=== PATIENT | female | born 1955 | race Caucasian/White ===

== ENCOUNTER 2017-08-23 14:50 | Outpatient (CLI) | payer MEDICAID ==
--- NOTE | 2017-08-23 19:02 | XRAY Report ---
THREE VIEW RIGHT FOOT: 08/23/2017 CLINICAL INDICATION: Foot pain. FINDINGS: AP, lateral, oblique views of the right foot demonstrate moderate hallux valgus, with osteoarthritis, and mild valgus deformity of the second and third metatarsophalangeal joints. There is no evidence of acute fracture. No radiopaque foreign body is seen in the soft tissues. IMPRESSION: OSTEOARTHRITIS, WITH MODERATE HALLUX VALGUS. TD: 08/23/2017 18:52
== END 2017-08-23 14:51 | disposition home or self-care (01) ==
LOC: DI.S 14:50
PROVIDERS: ATTEND Nurse Practitioner Family
DX: M19.071 Primary osteoarthritis, right ankle and foot (principal); M20.11 Hallux valgus (acquired), right foot

== ENCOUNTER 2017-11-05 11:11 | Outpatient (CLI) | payer MEDICAID ==
--- NOTE | 2017-11-05 13:45 | XRAY Report ---
TWO VIEW CHEST: 11/05/2017 CLINICAL INDICATION: Cough. COMPARISON: 10/06/2014. FINDINGS: Frontal and lateral views of the chest demonstrate a normal cardiac silhouette. The lungs remain hyperinflated, compatible with COPD. No new consolidation, effusion, or pneumothorax is present. IMPRESSION: STABLE COPD. NO EVIDENCE OF ACUTE CARDIOPULMONARY DISEASE. TD: 11/05/2017 13:44
== END 2017-11-05 11:12 | disposition home or self-care (01) ==
LOC: DI.S 11:11
PROVIDERS: ATTEND Nurse Practitioner Family
DX: J44.9 Chronic obstructive pulmonary disease, unspecified (principal)
CPT/HCPCS: 71046

== ENCOUNTER 2018-02-25 08:39 | Outpatient (CLI) | payer MEDICAID ==
[2018-02-25 11:55] LABS: BASOPHILS % (AUTO) 0.4 %; EOSINOPHILS # (AUTO) 0.2 10^3/uL (0.0-0.7); EOSINOPHILS % (AUTO) 3.2 %; HGB - HEMOGLOBIN 14.5 g/dL (12.0-16.0); LYMPHOCYTES # (AUTO) 1.5 10^3/uL (1.5-3.5); LYMPHOCYTES % (AUTO) 23.2 %; MEAN CORPUSCULAR HEMOGLOBIN 31.9 pg (27.0-31.0); MEAN CORPUSCULAR HGB CONC 33.6 g/dL (32.0-36.0); MEAN PLATELET VOLUME 8.1 fL (7.9-10.8); MONOCYTES # (AUTO) 0.5 10^3/uL (0.0-1.0); NEUTROPHILS # (AUTO) 4.3 10^3/uL (1.5-6.6); NEUTROPHILS % (AUTO) 65.2 %; PLT - PLATELET COUNT 253 10^3/uL (130-450); RED BLOOD COUNT 4.55 10^6/uL (4.20-5.40); RED CELL DISTRIBUTION WIDTH 13.6 % (12.0-15.0); WHITE BLOOD COUNT 6.5 x10^3/uL (4.8-10.8)
[2018-02-25 13:53] LABS: ALBUMIN/GLOBULIN RATIO 1.5 (1.0-2.2); ALKALINE PHOSPHATASE 67 IU/L (42-121); ALT ALANINE AMINOTRANSFERASE 41 IU/L (10-60); AST ASPARTATE AMINOTRANSFERASE 25 IU/L (10-42); BILIRUBIN,TOTAL 1.1 mg/dL (0.2-1.0); BUN - BLOOD UREA NITROGEN 6 mg/dL (6-20); CALCIUM 8.4 mg/dL (8.5-10.3); CARBON DIOXIDE - CO2 32 mmol/L (21-32); CHLORIDE 95 mmol/L (101-111); CHOL/HDL RATIO 2.8 (<4.4); CHOLESTEROL 207 mg/dL; CREATININE 0.4 mg/dL (0.4-1.0); GFR - MDRD 161 (>89); GLUCOSE 106 mg/dL (70-100); HDL CHOLESTEROL 73 mg/dL; LDL CHOLESTEROL,CALCULATED 114 mg/dL; LDL/HDL RATIO 1.6 (<4.4); SODIUM 134 mmol/L (135-145); TOTAL PROTEIN 6.7 g/dL (6.7-8.2); VLDL CHOLESTEROL 20 mg/dL
== END 2018-02-25 08:40 ==
LOC: LAB.S 08:39
PROVIDERS: ATTEND Nurse Practitioner Family
DX: F41.8 Other specified anxiety disorders (principal); Z13.6 Encounter for screening for cardiovascular disorders; Z13.29 Encounter for screening for other suspected endocrine disorder
CPT/HCPCS: 36415; 80053; 80061; 83721; 84443; 85025

== ENCOUNTER 2018-11-15 14:04 | Outpatient (CLI) | payer MEDICARE, MEDICAID ==
--- NOTE | 2018-11-17 08:03 | XRAY Report ---
Reason: SHORTNESS OF BREATH,PRODUCTIVE COUGH,COPD Procedure Date: 11/15/2018 Accession Number: [id number] / [id number] Procedure: XR - Chest 2 View X-Ray CPT Code: 52731 FULL RESULT: EXAM: CHEST RADIOGRAPHY EXAM DATE: 11/15/2018 02:29 PM. CLINICAL HISTORY: COPD COMPARISON: CHEST 2 VIEW 11/05/2017 11:48 AM. TECHNIQUE: 2 views. FINDINGS: Lungs/Pleura: No focal opacity. Increased lung markings. No effusions. Mediastinum: Stable Other: ACDF IMPRESSION: Suspect underlying airways disease RADIA
== END 2018-11-15 14:05 | disposition home or self-care (01) ==
LOC: DI 14:04
PROVIDERS: ATTEND Nurse Practitioner
DX: J44.9 Chronic obstructive pulmonary disease, unspecified (principal); R05 Cough
CPT/HCPCS: 71046

== ENCOUNTER 2019-08-22 14:22 | Outpatient (CLI) | payer MEDICARE, MEDICAID ==
--- NOTE | 2019-08-23 23:34 | Ultrasound Report ---
Reason: PELVIC PAIN Procedure Date: 08/22/2019 Accession Number: [id number] / [id number] Procedure: US - Pelvic w/Transvaginal CPT Code: Final Report FULL RESULT: EXAM: PELVIC ULTRASOUND EXAM DATE: 08/22/2019 03:17 PM. CLINICAL HISTORY: Pelvic and perineal pain for 3 months. COMPARISON: CT abdomen and pelvis dated 02/04/2012. TECHNIQUE: Realtime transabdominal pelvic scan performed to identify the uterus and adnexa and as an overview of other pelvic structures, followed by transvaginal scan to provide greater detail of the uterus and adnexa, with static image documentation. FINDINGS: Uterus: 4.1 x 2.0 x 3.6 cm, volume 15.6 cc. Retroverted position. Normal overall size and echotexture. Masses: None. Endometrium: 3 mm. Echogenic foci at lower uterine segment measuring 4 x 4 x 5 mm, possibly clustered calcifications. Cervix: Nabothian cyst. Otherwise unremarkable. Right Ovary: 1.4 x 1.1 x 0.9 cm, volume 0.8 cc. Normal echotexture and blood flow. Left Ovary: 1.6 x 0.8 x 1.2 cm, volume 0.8 cc. Normal echotexture and blood flow. Mildly prominent vessel in left adnexa measuring 5 mm. Free Fluid: None. Other: None. IMPRESSION: 1. No sonographic evidence of ovarian torsion or other acute process to account for pain. 2. Echogenic foci at lower uterine segment, possibly calcification(s). 3. Nonspecific mildly prominent vessel in left adnexa. 4. No free fluid. RADIA
== END 2019-08-22 14:23 | disposition home or self-care (01) ==
LOC: DI 14:22
PROVIDERS: ATTEND Internal Medicine
DX: R10.2 Pelvic and perineal pain (principal); R39.9 Unspecified symptoms and signs involving the genitourinary system
CPT/HCPCS: 76830; 76856

== ENCOUNTER 2020-02-02 10:24 | Outpatient (CLI) | payer MEDICARE ==
--- NOTE | 2020-02-03 07:48 | Ultrasound Report ---
LIMITED ULTRASOUND OF LEFT BREAST AND AXILLA: 02/02/2020 CLINICAL: Palpable left breast lump. Comparison is made to exams dated: 02/02/2020 mammogram and 10/15/2014 mammogram - [facility]. Color flow and real-time ultrasound of the left breast 10 o'clock, and axilla regions were performed . Alexander scale images of the real-time examination were reviewed. There is a 1.6 cm x 2.3 cm x 1.3 cm irregular mass with an indistinct margin in the left breast at 10 o'clock middle depth 3 cm from the nipple. This irregular mass is hypoechoic with no posterior acou stic shadowing or enhancement. This correlates as palpated, with mammography findings, and area of c linical concern. Color flow imaging demonstrates that there is vascularity present. There also is an irregular lymph node with eccentric cortical thickening in the left axillary tail. This irregular lymph node is hypoechoic with preservation of the fatty hilum. Color flow imaging dem onstrates that there is vascularity present. IMPRESSION: HIGHLY SUGGESTIVE OF MALIGNANCY The 1.6 cm x 2.3 cm x 1.3 cm irregular mass in the left breast at 10 o'clock middle depth is highly s uggestive of malignancy. An ultrasound guided biopsy is recommended. The irregular lymph node with eccentric cortical thickening in the left axillary tail is suspicious o f malignancy. An ultrasound guided biopsy is recommended. Findings and recommendations for biopsy were discussed with the patient by Dr. Rm during today's vis it. This exam was interpreted at Station ID: [id number]. Electronically Signed By: Gio Elias M.D. aty/:02/02/2020 11:59:57 Ultrasound BI-RADS: 5 Highly suggestive of malignancy BI-RADS CATEGORY: (5) - 5 None [id number] Immediate follow-up LATERALITY: ()
--- NOTE | 2020-02-03 07:48 | Mammography Report ---
BILATERAL DIGITAL DIAGNOSTIC MAMMOGRAM 3D/2D: 02/02/2020 CLINICAL: Palpable left breast lump. Comparison is made to exam dated: 10/15/2014 mammogram - [facility] with [facility]. The tissue of both breasts is extremely dense, which lowers the sensitivity of mammography. There is a new 1.8 cm x 2.4 cm irregular equal density mass in the left breast at 10 o'clock middle d epth. This correlates as palpated and with area of clinical concern as denoted by triangular skin ma rker. There is mild architectural distortion associated with the mass. No other significant masses, calcifications, or other findings are seen in either breast. IMPRESSION: INCOMPLETE: NEEDS ADDITIONAL IMAGING EVALUATION The new 1.8 cm x 2.4 cm irregular equal density mass in the left breast is indeterminate. An ultrasound is recommended for further evaluation and is scheduled to immediately follow this study . This exam was interpreted at Station ID: [id number]. NOTE: For mammograms, a report in lay terms will be sent to the patient. Approximately 15% of breast malignancies will not be visualized mammographically. In the management of a palpable breast mass, a negative mammogram must not discourage biopsy of a clinically suspicious lesion. Electronically Signed By: Gio Elias M.D. aty/:02/02/2020 11:52:36 ACR BI-RADS Category 0: Incomplete 3340F PARENCHYMAL PATTERN: (VD) - The breast(s) demonstrate(s) extremely dense parenchyma, limiting the sen sitivity of mammography. BI-RADS CATEGORY: (0) - 0 Ultrasound [id number] Immediate follow-up LATERALITY: (L)
== END 2020-02-02 10:25 | disposition home or self-care (01) ==
LOC: DI 10:24
PROVIDERS: ATTEND Internal Medicine
DX: N63.22 Unspecified lump in the left breast, upper inner quadrant (principal); R93.89 Abnormal findings on diagnostic imaging of other specified body structures
CPT/HCPCS: 76642; 77066

== ENCOUNTER 2020-02-09 14:32 | Outpatient (CLI) | payer MEDICARE ==
[~2020-02-09 14:32] MED LIST: BUFFERED LIDOCAINE 10 ML SYRINGE ONE
[2020-02-09] MEDS ORDERED: BUFFERED LIDOCAINE 10 ML SYRINGE ONE (15:10)
[2020-02-09] MEDS ORDERED: BUFFERED LIDOCAINE 10 ML SYRINGE IU ONE (16:23)
--- NOTE | 2020-02-10 11:16 | Mammography Report ---
UNILATERAL LEFT DIGITAL DIAGNOSTIC MAMMOGRAM: 02/09/2020 CLINICAL: Post left breast ultrasound biopsy clip placement imaging. Comparison is made to exams dated: 02/02/2020 ultrasound and 02/02/2020 mammogram - [facility]. There is a marker clip in the appropriate position in the left breast at 10 o'clock middle depth. Th is marker clip placement is at the biopsy site. There also is a mass in the left breast seen on the craniocaudal view only. No other significant masses or calcifications are seen in the breast. IMPRESSION: INCOMPLETE: NEEDS ADDITIONAL IMAGING EVALUATION There was a successful marker clip placement in the left breast at 10 o'clock middle depth. The mass in the left breast seen on the craniocaudal view only needs additional evaluation. This exam was interpreted at Station ID: [id number]. NOTE: For mammograms, a report in lay terms will be sent to the patient. Approximately 15% of breast malignancies will not be visualized mammographically. In the management of a palpable breast mass, a negative mammogram must not discourage biopsy of a clinically suspicious lesion. Electronically Signed By: Bev Hoyos M.D. [facility]/:02/10/2020 10:35:59 ACR BI-RADS Category 0: Incomplete 3340F Unknown BI-RADS CATEGORY: (0) - 0 Unspecified - other recall n/a LATERALITY: (B)
--- NOTE | 2020-02-10 16:27 | Ultrasound Report ---
PROCEDURE: Biopsy Breast Core INDICATIONS: LT BREAST MASS TECHNIQUE: The indications, alternatives, benefits, risks, and complications of the procedure were e xplained to the patient. Written informed consent was obtained and placed in the chart. Real-time sonography was utilized to choose the site for the percutaneous breast biopsy. The skin wa s prepped and draped in the usual sterile fashion. 1% lidocaine was infiltrated down to the site of interest. A coaxial needle was then advanced into the site of interest under direct sonographic visu alization. A biopsy apparatus was then utilized, and core biopsies were obtained. The needle was th en withdrawn; a bandage was applied to the biopsy site. COMPARISON: None. FINDINGS: Biopsy site(s): Left breast 10:00 Needle: 10-gauge Achieve biopsy needle set was utilized. Number of passes: 3 Medications: 1% lidocaine for local anaesthesia. Complications: None. IMPRESSION: Successful ultrasound-guided breast biopsy with clip placement, Pathology results are pe nding. Reviewed by: Bev Hoyos MD, PhD on 02/10/2020 4:26 PM PDT Approved by: Bev Hoyos MD, PhD on 02/10/2020 4:26 PM PDT Station ID: [id number]
== END 2020-02-09 14:33 | disposition home or self-care (01) ==
LOC: DI 14:32
PROVIDERS: ATTEND Internal Medicine
DX: C50.212 Malignant neoplasm of upper-inner quadrant of left female breast (principal); Z17.0 Estrogen receptor positive status [ER+]
CPT/HCPCS: 19083

== ENCOUNTER 2020-04-05 10:54 | Outpatient (CLI) | payer MEDICARE ==
--- NOTE | 2020-04-05 17:18 | DEXA Report ---
PROCEDURE: Dexa Spine and/or Hip INDICATIONS: POST MENOPAUSAL TECHNIQUE: Dual energy x-ray absorptiometry (DXA) was performed on a Framebench System. Regions measur ed are the AP Spine, femoral neck, and if needed forearm. COMPARISON: None. FINDINGS: Lumbar Spine: Bone Mineral Density 1.441 g/cm/cm,T score 2.2, normal Left Hip: Bone Mineral Density 0.818 g/cm/cm,T score -1.5, osteopenia Left Femoral Neck: Bone Mineral Density 0.806 g/cm/cm, T score -1.7, osteopenia (T score greater or equal to -1.0: NORMAL) (T score from -1.1 to -2.4: OSTEOPENIA) (T score less than or equal to -2.5 to: OSTEOPOROSIS) Impression: Osteopenia. Patients with diagnosis of osteoporosis or osteopenia should have regular bone mineral density assess ment. For those eligible for Medicare, routine testing is allowed once every 2 years. Testing frequ ency can be increased for patients who have rapidly progressing disease or for those who are receivin g medical therapy to restore bone mass. Reviewed by: Bev Hoyos MD, PhD on 04/05/2020 5:16 PM PDT Approved by: Bev Hoyos MD, PhD on 04/05/2020 5:16 PM PDT Station ID: [id number]
== END 2020-04-05 10:55 | disposition home or self-care (01) ==
LOC: DI 10:54
PROVIDERS: ATTEND Internal Medicine Hematology & Oncology
DX: M85.89 Other specified disorders of bone density and structure, multiple sites (principal)
CPT/HCPCS: 77080

== ENCOUNTER 2020-04-29 12:17 | Outpatient (CLI) | payer MEDICARE ==
--- NOTE | 2020-04-29 13:23 | XRAY Report ---
PROCEDURE: Chest 2 View X-Ray INDICATIONS: PRE OP TECHNIQUE: 2 view(s) of the chest. COMPARISON: 5.3.19 FINDINGS: Surgical changes and devices: Low anterior cervical fusion. Lungs and pleura: No pleural effusions or pneumothorax. Lungs are clear. Mediastinum: Mediastinal contours are normal. Heart size is normal. Bones and chest wall: No suspicious bony abnormalities. Soft tissues appear unremarkable. IMPRESSION: No acute process. Reviewed by: Reuben Randhawa MD on 04/29/2020 1:21 PM PDT Approved by: Reuben Randhawa MD on 04/29/2020 1:21 PM PDT Station ID: [id number]
== END 2020-04-29 12:18 | disposition home or self-care (01) ==
LOC: LAB 12:17 → DI 12:18
PROVIDERS: ATTEND Internal Medicine
DX: Z01.812 Encounter for preprocedural laboratory examination (principal); Z20.828 Contact with and (suspected) exposure to other viral communicable diseases; Z01.818 Encounter for other preprocedural examination; C50.912 Malignant neoplasm of unspecified site of left female breast; I45.2 Bifascicular block
CPT/HCPCS: 71046; 93005; U0004

== ENCOUNTER 2020-05-03 08:29 | Day surgery (SDC) | payer MEDICARE ==
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
--- NOTE | 2020-05-03 08:54 | ANESTHESIA ---
Pre-Anesthesia VS, & Labs - Diagnosis Left Breast Cancer - Procedure Left breast Lumpectomy and [place] Node Vital Signs: Temp Pulse Resp BP Pulse Ox 36.8 C 72 16 148/94 H 94 05/03/20 08:46 05/03/20 08:46 05/03/20 08:46 05/03/20 08:46 05/03/20 08:46 Height: 5 ft 8.5 in Weight (kg): 49 kg Body Mass Index: 16.2 BMI Classification: Underweight - NPO >8 hours - Is Patient ?: No - Lab Results Lab results reviewed: Yes Home Medications and Allergies Home Medications: Ambulatory Orders Albuterol Sulfate [Albuterol Sulfate Hfa] 1 - 2 puffs IH Q4HR PRN 04/29/20 Buprenorphine HCl/Naloxone HCl [Suboxone 8 mg-2 mg Sl Film] 1 each SL BID 04/29/20 Gabapentin 800 mg PO BID 04/29/20 Hydrocortisone/Acetic Acid [Hydrocortison-Acetic Acid Soln] 3 drops OT Q4HR PRN 04/29/20 Trazodone HCl 100 mg PO QPM 04/29/20 Triamcinolone 0.1% Cream [Kenalog 0.1% Cream] 1 applic TOP BID 04/29/20 hydrOXYzine HCL [Hydroxyzine HCl] 25 mg PO PRN PRN 04/29/20 DULoxetine [Cymbalta] 60 mg PO BID 03/15/20 Albuterol Sulfate [Albuterol Sulfate Hfa] 1 - 2 puffs IH Q4HR PRN 04/29/20 Buprenorphine HCl/Naloxone HCl [Suboxone 8 mg-2 mg Sl Film] 1 each SL BID 04/29/20 Gabapentin 800 mg PO BID 04/29/20 Hydrocortisone/Acetic Acid [Hydrocortison-Acetic Acid Soln] 3 drops OT Q4HR PRN 04/29/20 Trazodone HCl 100 mg PO QPM 04/29/20 Triamcinolone 0.1% Cream [Kenalog 0.1% Cream] 1 applic TOP BID 04/29/20 hydrOXYzine HCL [Hydroxyzine HCl] 25 mg PO PRN PRN 04/29/20 Allergies/Adverse Reactions: Allergies Allergy/AdvReac Type Severity Reaction Status Date / Time Penicillins AdvReac Anaphylaxis Verified 04/29/20 11:57 Sulfa (Sulfonamide AdvReac Anaphylaxis Verified 04/29/20 11:57 Antibiotics) Anes History & Medical History - Anesthetic History Anesthesia Complications: reports: No previous complications (Grade 1-just recently detected) Family history of Anesthesia Complications: Denies Family history of Malignant Hyperthermia: Denies - Medical History Cardiovascular: reports: Murmur Pulmonary: reports: COPD (Mild, lungs clear, onlyh occasional rescue inhaler, not used for several months) Gastrointestinal: reports: None Urinary: reports: None Neuro: reports: None Musculoskeletal: reports: Osteoarthritis, Chronic back pain (Very painful), Ot her Endocrine/Autoimmune: reports: None Blood Disorders: reports: None Skin: reports: Eczema Smoking Status: Light tobacco smoker Psychosocial: reports: Alcohol (Daily ETOH-2-3 drinks), Opioid (Opioid abuse-now on Suboxone.) History of Cancer?: Yes (Current) - Surgical History General: Cholecystectomy Orthopedic: Spine surgery Results - EKG Results EKG Comparison: Reviewed EKG (PVC, RBBB, LAFB) Exam General: Alert, Oriented x3, Mild distress Dental: Poor dentition, Other (Missing lower front. none loose) Mouth Opening: Greater than 4 Fingerbreadths Neck Mobility: Normal Mallampati classification: I Thyromental Distance: 4-6 cm Respiratory: Lungs clear Cardiovascular: Regular rate, Normal S1, Normal S2, Other (Grade 1 murmur) Neurological: Normal speech Mental/Cognitive Status: Alert/Oriented X3 Cognitive Status: Within normal limits Plan Anesthesia Type: General Consent for Procedure(s) Verified and Reviewed: Yes Code Status: Attempt Resuscitation ASA classification: 3-Severe systemic disease Is this case an emergency?: No (Discussed anesth,risks,consent signed.)
[2020-05-03] MEDS ORDERED: CEFAZOLIN SODIUM IN 0.9 % NACL 0 GM/0 ML BAG IV ONE (09:13)
[2020-05-03] MEDS ORDERED: fentaNYL 100 MCG/2 ML VIAL IVP PRN (09:49)
[2020-05-03] MEDS ORDERED: MORPHINE 2 MG/ML CARPUJECT IVP PRN (09:49)
[2020-05-03] MEDS ORDERED: ATROPINE ABBOJECT 1 MG/10 ML SYRINGE IVP PRN (09:49)
[2020-05-03] MEDS ORDERED: ONDANSETRON 4 MG/2 ML VIAL IVP PRN ×2 (09:49→12:05)
[2020-05-03] MEDS ORDERED: NALOXONE 0.4 MG/ML VIAL IVP PRN (09:49)
[2020-05-03] MEDS ORDERED: METOCLOPRAMIDE 10 MG/2 ML VIAL IVP PRN (09:49)
[2020-05-03] MEDS ORDERED: ePHEDrine 50 MG/ML VIAL IVP PRN (09:49)
[2020-05-03] MEDS ORDERED: HYDROmorphone 0.5 MG/0.5 ML SYRINGE IVP PRN (09:49)
[2020-05-03] MEDS ORDERED: CLINDAMYCIN 600 MG/50 ML 50 ML IV ONE (09:55)
[2020-05-03] MEDS ORDERED: LACTATED RINGERS 1,000 ML IV SCH (10:00)
[2020-05-03] MEDS ORDERED: ePHEDrine 50 MG/ML VIAL IVP ONE (10:19)
[2020-05-03] MEDS ORDERED: ONDANSETRON 4 MG/2 ML VIAL IVP ONE (10:19)
[2020-05-03] MEDS ORDERED: LIDOCAINE-MPF 2% 5 ML VIAL IM ONE (10:19)
[2020-05-03] MEDS ORDERED: MIDAZOLAM 2 MG/2 ML VIAL IVP ONE ×2 (10:19)
[2020-05-03] MEDS ORDERED: GLYCOPYRROLATE 1 MG/5 ML VIAL IVP ONE (10:19)
[2020-05-03] MEDS ORDERED: PROPOFOL 200 MG/20 ML VIAL IVP ONE (10:19)
[2020-05-03] MEDS ORDERED: DEXAMETHASONE 4 MG/ML VIAL IVP ONE (10:19)
[2020-05-03] MEDS ORDERED: ACETAMINOPHEN 1,000 MG/100 ML 100 ML IV ONE (10:19)
[2020-05-03] MEDS ORDERED: BUPIVACAINE 0.25%-EPI 1:200000 PF 10 ML VIAL SUBQ ONE ×2 (10:45)
[2020-05-03] MEDS ORDERED: LIDOCAINE 1% 50 ML MDV SUBQ ONE ×2 (10:49)
--- NOTE | 2020-05-03 11:53 | OPERATIVE REPORT ---
Operative Report - General Procedure Date: 05/03/20 Planned Procedure: Left Breast Lumpectomy and [place] Node Biopsy Pre-Op Diagnosis: Left breast cancer Procedure Performed: Left breast lumpectomy and sentinel node biopsy Post Op Diagnosis: Left breast cancer - Procedure Note Primary Surgeon: Bijan Anesthesia Provider: Ana Paula Martell Anesthesia Technique: General LMA, Local Pathology: 1. [place] node #1 level 2 of the [id number] count 92,411 2. [place] node #2 level 2 in the [id number]-05-lweqom count 75,358 3. [place] node #3-level 2 in the wybxrg-95-aauany count 51,734 4. [place] node #4 level 2 in the [id number]-30-iirrbk count 1283 5. [place] node #5 level 2 in the [id number]-01-mvdcrw count 1250 6. Additional axillary tissue 7. Left breast lumpectomy specimen with a short stitch superior and long stitch lateral-double stitch anterior. Estimated Blood Loss (mL): 25 Indications: Biopsy-proven left breast cancer Findings: 1. Breast mass very near the dermis of the skin and adherent to the retromammary bursa posteriorly. Not grossly adherent to the muscle. Hypervascularity of the lesion was noted 2. 5 sentinel nodes with counts as listed. Background in the room was 0 background in the axilla was 29 Complications: None apparent - Other Other Information/Narrative: After obtaining informed consent, the patient was brought to the operating room and placed in the supine position on the operating table. Following successful induction of general endotracheal anesthesia, appropriate padding of all bony prominences, and placement of appropriate monitors, the left breast was prepped and draped in the standard surgical fashion. A timeout was held per scope protocol. All elements of the surgical safety checklist were followed before, during, and after the procedure. We began the procedure with a sentinel node dissection. The site of the brightest node had been marked in radiology with 2 skin marker axis. The neoprobe was used to identify the site of greatest uptake at level 2 in the patient's axilla. The patient is quite thin and has minimal axillary tissue. An incision was created over this area of uptake and carried through the skin and subcutaneous tissue to enter the axillary node packet. The first sentinel node was easily identified. It was large and firm. It was carefully dissected free from surrounding stop structures sharply, all lymphatics and vasculature were addressed with clips prior to division. The node was liberated into the field. 10-second counts are recorded. Survey of the axilla revealed continued high uptake. A second sentinel node was identified just posterior to the first. Again it was addressed in the same manner. It was gently retracted and sharply freed from the surrounding structures. All lymphatics and vasculature were dressed with hemoclips and the node was liberated. It was delivered into the field and a 10-second count was obtained. A third sentinel node was identified lateral to the second. It was addressed in the same manner. It was gently retracted and sharply freed from the surrounding structures. All lymphatics and vasculature were dressed with hemoclips and the node was liberated. It was delivered into the field and a 10-second count was obtained.Continued evaluation revealed uptake in the axilla medial to the second node. Additional dissection revealed 2 more tiny nodes with uptake meeting criteria. Both were treated in the same manner. All lymphatics and vasculature were addressed with hemoclips prior to division. The nodes were delivered into the field one at a time in 10- second counts were obtained. The axilla was examined for hemostasis. It was irrigated with warm water and aspirated free of fluid and particulate matter. Background in the axilla was checked and found to be 19-29. Background in the room was 0. The axillary incision was then closed in 2 layers with Vicryl and Monocryl sutures. We turned our attention to the left breast mass. The area over the mass and in the periareolar region was infiltrated with a mixture of local anesthetics to cry to field block. A periareolar incision was then created in the Palpable mass carefully dissected sharply from the dermis anteriorly and from the muscle posteriorly. The retromammary bursa was not adherent to the underlying muscle. The mass was reviewed moved in a single piece in a medial to lateral fashion. It was marked with a short stitch superior, long stitch lateral, and double stitch anterior. It was finally liberated sharply and delivered into the field. The wound was checked for hemostasis. It was irrigated again with warm water. The biopsy cavity was then marked for orientation with clips peripherally and centrally.The wound was then closed in 2 layers with Vicryl and Monocryl sutures. All sponge, needle, and instrument counts were correct at the conclusion of the case. The patient was let awakened anesthesia without difficulty and taken to the postanesthesia care unit in good condition.
[2020-05-03] MEDS ORDERED: LACTATED RINGERS 1,000 ML IV ONE (11:54)
[2020-05-03] MEDS ORDERED: ACETAMINOPHEN 325 MG TABLET PO PRN (12:05)
[2020-05-03] MEDS ORDERED: IBUPROFEN 600 MG TABLET PO PRN (12:05)
--- NOTE | 2020-05-03 13:10 | ANESTHESIA POST OP EVALUATION ---
Anesthesia Post Eval - Post Anesthesia Eval Vitals: Last Vital Signs Temp 37.4 C 05/03/20 12:32 Pulse 93 05/03/20 12:56 Resp 14 05/03/20 12:56 BP 134/78 H 05/03/20 12:56 Pulse Ox 92 05/03/20 12:56 CV Function Including HR & BP: positive: Stable Pain Control: positive: Satisfactory Nausea & Vomiting: positive: Negative Mental Status: positive: Baseline Respiratory Status: Airway Patent Hydration Status: Satisfactory (Awake, alert, comfortable, no pain or nausea.) Anesthesia Complications: positive: None
[2020-05-03 14:06] VITALS: BP 152/89
--- NOTE | 2020-05-05 11:22 | Nuclear Medicine Report ---
PROCEDURE: Lymph Node Scintigraphy INDICATIONS: LT INVASIVE DUCTAL CA RADIOPHARMACEUTICAL: 0.5-1.0 mCi Millipore filtered Tc-99m sulfur colloid. TECHNIQUE: The area around the nipple was prepped and draped in a sterile fashion. Tc-99m sulfur colloid was in jected intra-dermally in the outer edge of the areola in the left breast. Images were obtained subse quently. FINDINGS: There are ~7 lymph nodes in the ipsilateral left axilla. IMPRESSION: About 7 lymph nodes are seen in the left axilla. Reviewed by: Martha Rm MD on 05/05/2020 11:21 AM PDT Approved by: Martha Rm MD on 05/05/2020 11:21 AM PDT Station ID: [id number]
== END 2020-05-03 08:30 | disposition home or self-care (01) ==
LOC: SDS 08:29
PROVIDERS: ATTEND Surgery
PROC: 07B60ZX Excision of Left Axillary Lymphatic, Open Approach, Diagnostic (ICD-10-PCS; 2020-05-03)
PROC: 0HBU0ZZ Excision of Left Breast, Open Approach (ICD-10-PCS; principal; 2020-05-03 11:15)
DX: C50.912 Malignant neoplasm of unspecified site of left female breast (principal); Z17.0 Estrogen receptor positive status [ER+]; J44.9 Chronic obstructive pulmonary disease, unspecified; F10.10 Alcohol abuse, uncomplicated; F11.10 Opioid abuse, uncomplicated; F17.200 Nicotine dependence, unspecified, uncomplicated; R01.1 Cardiac murmur, unspecified; R64 Cachexia; Z68.1 Body mass index [BMI] 19.9 or less, adult; Z98.1 Arthrodesis status; Z79.899 Other long term (current) drug therapy
CPT/HCPCS: 19301; 38525; 78195; J0131; J7120

== ENCOUNTER 2021-12-01 09:19 | Day surgery (SDC) | payer MEDICARE ==
[2021-12-01] MEDS ORDERED: LACTATED RINGERS 1,000 ML IV ONE (09:43)
[2021-12-01] MEDS ORDERED: PHENYLEPHRINE 2.5% OPHTH 2 ML DROPS LEFTEYE ONE (09:45)
[2021-12-01] MEDS ORDERED: KETOROLAC 0.45% OPHTH DROPS LEFTEYE ONE (09:45)
[2021-12-01] MEDS ORDERED: PROPARACAINE 0.5% OPHTH DROPS 15 ML LEFTEYE ONE (09:45)
[2021-12-01] MEDS ORDERED: CYCLOPENTOLATE 1% OPHTH DROPS 2 ML LEFTEYE ONE (09:45)
[2021-12-01] MEDS ORDERED: MIDAZOLAM 2 MG/2 ML VIAL ONE (10:19)
--- NOTE | 2021-12-01 10:22 | ANESTHESIA ---
Pre-Anesthesia VS, & Labs - Diagnosis left senile combined cataract - Procedure left cataract extraction with iol Vital Signs: Temp Pulse Resp BP Pulse Ox 36.5 C 55 L 16 153/98 H 98 12/01/21 09:43 12/01/21 09:43 12/01/21 09:43 12/01/21 09:43 12/01/21 09:43 Height: 5 ft 8 in Weight (kg): 48.3 kg Body Mass Index: 16.2 BMI Classification: Underweight - NPO >8 hours - Is Patient ?: No Home Medications and Allergies DULoxetine [Cymbalta] 60 mg PO BID 03/15/20 Albuterol Sulfate [Albuterol Sulfate Hfa] 1 - 2 puffs IH Q4HR PRN 04/29/20 Buprenorphine HCl/Naloxone HCl [Suboxone 8 mg-2 mg Sl Film] 1 each SL BID 04/15 12/02 Gabapentin 800 mg PO BID 04/29/20 Trazodone HCl 100 mg PO QPM 04/29/20 Triamcinolone 0.1% Cream [Kenalog 0.1% Cream] 1 applic TOP BID 04/29/20 hydrOXYzine HCL [Hydroxyzine HCl] 25 mg PO PRN PRN 04/29/20 Allergies/Adverse Reactions: Allergies Allergy/AdvReac Type Severity Reaction Status Date / Time Penicillins AdvReac Anaphylaxis Verified 07/26/20 12:00 Sulfa (Sulfonamide AdvReac Anaphylaxis Verified 07/26/20 12:00 Antibiotics) Anes History & Medical History - Anesthetic History Anesthesia Complications: reports: No previous complications - Medical History Cardiovascular: reports: None Pulmonary: Gastrointestinal: reports: None Urinary: reports: None Neuro: reports: None Musculoskeletal: reports: Osteoarthritis, Chronic back pain, Other Endocrine/Autoimmune: reports: None Blood Disorders: reports: None Smoking Status: Light tobacco smoker - Surgical History General: reports: Cholecystectomy Gynecologic: reports: Other Exam General: Alert, Oriented x3 Dental: WNL, Partials Lower Mouth Opening: Greater than 4 Fingerbreadths Neck Mobility: Normal Mallampati classification: II Respiratory: Lungs clear Cardiovascular: Regular rate Plan Anesthesia Type: MAC Consent for Procedure(s) Verified and Reviewed: Yes Code Status: Attempt Resuscitation ASA classification: 2-Mild systemic disease Is this case an emergency?: No
[2021-12-01] MEDS ORDERED: TRIAMCIN/MOXIFLOX OPHTHALMIC 0.6 ML VIAL IO ONE ×2 (10:35→10:38)
[2021-12-01] MEDS ORDERED: TIMOLOL 0.5% OPHTH DROPS ONE (10:35)
[2021-12-01] MEDS ORDERED: EPINEPHrine 1 MG/ML AMP ONE (10:35)
[2021-12-01] MEDS ORDERED: BRIMONIDINE 0.2% OPHTH DROPS 5 ML ONE (10:35)
[2021-12-01] MEDS ORDERED: BSS/LIDOCAINE/EPINEPHRINE 1 ML VIAL ONE (10:35)
[2021-12-01] MEDS ORDERED: EPINEPHrine 1 MG/ML AMP IR ONE (10:37)
[2021-12-01] MEDS ORDERED: TIMOLOL 0.5% OPHTH DROPS OPTH ONE (10:37)
[2021-12-01] MEDS ORDERED: BSS/LIDOCAINE/EPINEPHRINE 1 ML SYRINGE IO ONE (10:37)
[2021-12-01] MEDS ORDERED: BRIMONIDINE 0.2% OPHTH DROPS 5 ML OPTH ONE (10:37)
[2021-12-01] MEDS ORDERED: PROPARACAINE 0.5% OPHTH DROPS 15 ML EACHEYE ONE (10:38)
[2021-12-01] MEDS ORDERED: VANCOMYCIN OPHTHALMI 8MG/0.8ML 8 MG/0.8 ML SYRINGE IO ONE (10:38)
[2021-12-01] MEDS ORDERED: fentaNYL 100 MCG/2 ML VIAL ONE (10:41)
[2021-12-01] MEDS ORDERED: LACTATED RINGERS 800 ML IV ONE (10:48)
--- NOTE | 2021-12-01 10:49 | OPERATIVE REPORT ---
Operative Report - Other Other Information/Narrative: Date of Surgery: 12/01/21 Preop Dx: Visually significant cataract left eye. This was the first cataract surgery. Postop Dx: Same Procedure: Phacoemulsification with posterior chamber intraocular lens implant left eye Surgeon: Dr. Je Benavides Anesthesia: Monitored anesthesia care Complications: None Operative Indications: This is a 66-year-old F with progressive vision loss in the left eye due to 2+ nuclear sclerotic and 3+ cortical cataract. Best corrected visual acuity was 20/30 with glare to 20/60 vision in the left eye. Indications for surgery were: - Overall decrease in vision - Difficulty seeing words on a computer screen - Difficulty reading - Difficulty seeing words, closed captions, or game scores on TV - Difficulty seeing street signs - Difficulty driving in low light or at night - Difficulty driving at night because of headlights from other vehicles - Difficulty with glare or bright lights in any situation The patient was consented at length concerning the risks and benefits of cataract surgery after which the patient expressed a desire to proceed with surgery. Operative Procedure: The patient was taken into OR#3 and placed under monitored anesthesia care. A surgical time-out was conducted confirming correct patient, correct procedure, and correct surgical site. The patient was given topical anesthesia and then prepped and draped in the usual sterile fashion. The eye was entered at the 6 and 3 oclock positions. Intracameral Shugarcaine was injected into the anterior chamber followed by a dispersive viscoelastic. A continuous-tear curvilinear capsulorhexis was performed. The nucleus was hydrodissected and phacoemulsified. The cortex was evacuated using automated infusion and aspiration. A cohesive viscoelastic was injected into the capsular bag and a 20.5 diopter intraocular lens was inserted into the bag. Infusion and aspiration were used to evacuate the viscoelastic materials from the eye. The wounds were hydrated and the eye inflated to physiologic pressure using balanced salt solution. Approximately 0.25ml of a mixture of triamcinolone and moxifloxacin was injected trans-sclerally into the vitreous in the inferotemporal quadrant using a 30 gauge cannula. An additional 0.55ml of a mixture of triamcinolone, moxifloxacin, and vancomycin was injected subconjunctivally in the superior quadrant for infection and inflammation prophylaxis. Wound integrity was checked with [place] sponges. The patient was taken from the operating room in good condition and given post-op instructions.
--- NOTE | 2021-12-01 10:59 | ANESTHESIA POST OP EVALUATION ---
Anesthesia Post Eval - Post Anesthesia Eval Vitals: Last Vital Signs Temp 37.1 C 12/01/21 10:48 Pulse 55 L 12/01/21 10:48 Resp 12 12/01/21 10:48 BP 111/84 H 12/01/21 10:48 Pulse Ox 99 12/01/21 10:48 CV Function Including HR & BP: Stable Pain Control: Satisfactory Nausea & Vomiting: Negative Mental Status: Baseline Respiratory Status: Airway Patent Hydration Status: Satisfactory Anesthesia Complications: None
[2021-12-01 11:14] VITALS: BP 123/82
== END 2021-12-01 09:20 | disposition home or self-care (01) ==
LOC: SDS 09:19
PROVIDERS: ATTEND Ophthalmology
DX: H25.812 Combined forms of age-related cataract, left eye (principal); R63.6 Underweight; Z68.1 Body mass index [BMI] 19.9 or less, adult; F17.200 Nicotine dependence, unspecified, uncomplicated; F41.9 Anxiety disorder, unspecified
CPT/HCPCS: 66984; A9270; J7120

== ENCOUNTER 2024-03-19 14:48 | Outpatient (CLI) | payer MEDICARE, MEDICAID ==
--- NOTE | 2024-03-19 16:39 | XRAY Report ---
PROCEDURE: Foot 3+V RT (Weight Bearing) INDICATIONS: RIGHT FOOT PAIN TECHNIQUE: 3 views of the foot were acquired. COMPARISON: X-ray foot 08/23/2017 FINDINGS: Bones: No fractures or dislocations. No suspicious bony lesions. Prominent hallux valgus deformity is present. Scattered IP degenerative narrowing is present within the remaining digits. Mild midfoot degenerative change. Soft tissues: No tibiotalar joint effusion. Achilles tendon appears normal. IMPRESSION: Progressive appearance of hallux valgus deformity. Reviewed by: Irina Grissom MD on 03/19/2024 4:38 PM PDT Approved by: Irina Grissom MD on 03/19/2024 4:38 PM PDT Station ID: [id number]
== END 2024-03-19 14:49 | disposition home or self-care (01) ==
LOC: DI 14:48
PROVIDERS: ATTEND Podiatrist
DX: M79.671 Pain in right foot (principal); M20.11 Hallux valgus (acquired), right foot